=== PATIENT | male | born 1955 | race Two or more races ===

== ENCOUNTER 2018-11-02 11:17 | Outpatient (CLI) | payer OTHER | END 2018-11-02 11:22 | disposition home or self-care (01) | LOC: RAD 11:17 | DX: N20.0 Calculus of kidney (principal) ==

== ENCOUNTER → 2018-11-10 11:17 | Outpatient (CLI) | payer OTHER | END | disposition home or self-care (01) | LOC: LAB 11:17 | DX: N30.00 Acute cystitis without hematuria (principal) ==

== ENCOUNTER 2019-06-25 10:02 | Outpatient (CLI) | payer OTHER | END 2019-06-25 15:27 | disposition home or self-care (01) | LOC: MRI 10:02 | DX: M51.16 Intervertebral disc disorders with radiculopathy, lumbar region (principal) | CPT/HCPCS: 72148 ==